=== PATIENT | female | born 1985 | race African-American/Black ===

== ENCOUNTER 2019-03-09 10:35 | Emergency (ER) | payer OTHER ==
[~2019-03-09] VITALS: Ht 160 cm; Wt 70.3 kg
[2019-03-09 10:36] VITALS: BP 127/76
--- NOTE | 2019-03-09 10:47 | NUR ---
BIB SELF. PT AAO X4 C/O CONSTANT THROBBING LEFT UPPER BACK PAIN 10/10 X LAST NIGHT.DENIES TRAUMA,N/V/D. LMP 02/07/19. PT CAN LIFT UP ARM UP TO SHOULDER LENGTH WITH PAIN. +MOVEMENT TO L HAND FINGERS, CAP REFILL <3 SECS. 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 ALYSA EQUAL STRENGTH TO UPPER EXTREMITIES. HOB UP. BED SIDE RAILSUP X1. ON LOW BED POSITION, LOCKED. ER MADE AWARE OF PT STATUS.
--- NOTE | 2019-03-09 10:47 | NUR ---
Patient ambulated to bed 4. RN evaluating patient at bedside.
[2019-03-09] MEDS ORDERED: KETOROLAC 60 MG/2 ML VIAL IM ONE (11:10)
--- NOTE | 2019-03-09 12:38 | NUR ---
Dr. Hudson evaluating patient at bedside.
[2019-03-09 13:00] VITALS: BP 122/74
--- NOTE | 2019-03-09 13:02 | NUR ---
Patient discharged with v/s stable. Written and verbal after care instructions given and explained. Patient alert, oriented and verbalized understanding of instructions. Ambulatory with steady gait. All questions addressed prior to discharge. ID band removed. Patient advised to follow up with PMD. Rx of Cipro, Motrin, [place] 5 mg-325 mg given. Patient educated on indication of medication including possible reaction and side effects. Opportunity to ask questions provided and answered.
== END 2019-03-09 13:02 | disposition home or self-care (01) ==
LOC: MED 10:35
DX: M54.6 Pain in thoracic spine (principal); N12 Tubulo-interstitial nephritis, not specified as acute or chronic
CPT/HCPCS: 81002; 81025; 96372; 99283; J1885

== ENCOUNTER 2019-11-29 08:36 | Emergency (ER) | payer OTHER ==
[~2019-11-29] VITALS: Ht 152.4 cm; Wt 72.3 kg
[2019-11-29 08:55] VITALS: BP 126/70
--- NOTE | 2019-11-29 08:55 | NUR ---
PATIENT PRESENTS TO ED WITH C/O VAGINAL SPOTTING FOR ONE WEEK, 7 WKS , +LOWER ABDOMINAL CRAMPING, +N/V, LMP 10/09/19, NO MED HX. PATIENT STATES PAIN OF 7/10 AT THIS TIME; VSS; PATIENT POSITIONED FOR COMFORT; HOB ELEVATED; BEDRAILS UP X2; BED DOWN. ER MD MADE AWARE OF PT STATUS.
--- NOTE | 2019-11-29 09:05 | NUR ---
Patient being evaluated by DR. NARAYANAN at bedside.
--- NOTE | 2019-11-29 09:15 | NUR ---
US DONE AT BEDSIDE
--- NOTE | 2019-11-29 10:00 | NUR ---
PATIENT RESTING IN BED, DENIES DISCOMFORT, VSS, WAITING FOR LAB RESULT
[2019-11-29 10:28] LABS: BILIRUBIN,URINE NEGATIVE (NEGATIVE); BLOOD, URINE TRACE-L (NEGATIVE); COLOR,URINE YELLOW (YELLOW); LEUKOCYTE ESTERASE ,URINE 1+ (NEGATIVE); NITRITE, URINE NEGATIVE (NEGATIVE); UGLUCOSE NEGATIVE (NEGATIVE)
[2019-11-29 10:30] LABS: BASOPHILS % (AUTO) 0.6 % (0.0-2.0); EOSINOPHILS # (AUTO) 0.1 K/uL (0-0.4); EOSINOPHILS % (AUTO) 1.6 % (0.0-4.0); HEMATOCRIT 40.9 % (36-48); HEMOGLOBIN 13.2 g/dL (12.0-16.0); LYMPHOCYTES # (AUTO) 1.9 K/uL (2.5-16.5); LYMPHOCYTES % (AUTO) 36.7 % (20.5-51.1); MEAN CORPUSCULAR HEMOGLOBIN 30 pg (27-31); MEAN CORPUSCULAR HGB CONC 32 g/dL (33-37); MEAN CORPUSCULAR VOLUME 92.2 fL (80-94); MONOCYTES # (AUTO) 0.6 K/uL (0.8-1.0); MONOCYTES % (AUTO) 10.9 % (1.7-9.3); NEUTROPHILS # (AUTO) 2.6 K/uL (1.8-7.7); NEUTROPHILS % (AUTO) 50.2 % (42.2-75.2); PLATELET COUNT (AUTO) 153 K/uL (140-450); RED BLOOD CELL COUNT(AUTO) 4.43 MIL/uL (4.20-5.40); RED CELL DISTRIBUTION WIDTH 12.8 % (11.6-13.7); WHITE BLOOD COUNT (AUTO) 5.2 K/uL (4.8-10.8)
[2019-11-29 10:41] LABS: APPEARANCE,URINE SLIGHTLY HAZY (CLEAR)
[2019-11-29 10:42] LABS: RBC,URINE NONE SEEN /HPF (0-5); WBC,URINE 0-5 /HPF (0-5)
[2019-11-29 11:42] VITALS: BP 126/70
--- NOTE | 2019-11-29 11:42 | NUR ---
Patient discharged TO HOME, Written and verbal after care instructions given and explained. All questions addressed prior to discharge. ID band removed. Patient advised to follow up with PMD.
== END 2019-11-29 11:42 | disposition home or self-care (01) ==
LOC: MED 08:36
DX: O20.0 Threatened abortion (principal); Z3A.01 Less than 8 weeks gestation of pregnancy
CPT/HCPCS: 36415; 76801; 76817; 81001; 84702; 85025; 86900; 86901; 87086; 99284; Q0092

== ENCOUNTER 2024-06-11 19:35 | Emergency (ER) | payer OTHER ==
[~2024-06-11] VITALS: Ht 160 cm; Wt 68.9 kg
[2024-06-11 19:36] VITALS: BP 131/74; PULSE 76; RESP 14; TEMP 97.4; O2SAT 99
[2024-06-11 19:51] VITALS: BP 131/74; PULSE 76; RESP 14; TEMP 97.4; O2SAT 99
[2024-06-11] MEDS: FLUORESCEIN OPTH STRIP 1 MG OP ONE (20:05)
[2024-06-11] MEDS: TETRACAINE HCL/PF 0.5% OPTH 4 ML BTL OP ONE (20:06)
[2024-06-11] MEDS ORDERED: OFLOS RIGHT EYE (20:22)
== END 2024-06-11 20:28 | disposition home or self-care (01) ==
LOC: MED 19:35
DX: S05.01XA Injury of conjunctiva and corneal abrasion without foreign body, right eye, initial encounter (principal); H00.012 Hordeolum externum right lower eyelid; Z79.899 Other long term (current) drug therapy; X58.XXXA Exposure to other specified factors, initial encounter; Y92.89 Other specified places as the place of occurrence of the external cause; Y93.89 Activity, other specified; Y99.8 Other external cause status
CPT/HCPCS: 99283